=== PATIENT | female | born 1980 | race African-American/Black ===

== ENCOUNTER → 2016-09-08 | Outpatient (CLI) | payer OTHER ==
[~2016-09-08] MED LIST: FLEXERIL PO; NOHOMEMEDICATIONS; NORCO 5-325 TA1 EACH PO; PEPCID40 MG PO
== END ==
LOC: RAD 13:14
DX: N63 Unspecified lump in breast (principal); R92.2 Inconclusive mammogram

== ENCOUNTER 2016-12-20 18:17 | Emergency (ER) | payer OTHER ==
[~2016-12-20] VITALS: Ht 160 cm; Wt 49.9 kg
[2016-12-20 18:40] VITALS: BP 113/78
[2016-12-20] MEDS ORDERED: IBUPROFEN 800800 M1 PO (19:39)
[2016-12-20] MEDS ORDERED: FLEXERIL PO (19:39)
== END 2016-12-20 19:40 | disposition home or self-care (01) ==
LOC: ER 18:17
DX: S29.012A Strain of muscle and tendon of back wall of thorax, initial encounter (principal); F10.99 Alcohol use, unspecified with unspecified alcohol-induced disorder; F12.10 Cannabis abuse, uncomplicated; X50.0XXA Overexertion from strenuous movement or load, initial encounter; Y93.89 Activity, other specified; Y92.89 Other specified places as the place of occurrence of the external cause; Y99.8 Other external cause status

== ENCOUNTER 2016-12-22 20:42 | Emergency (ER) | payer OTHER ==
[~2016-12-22] VITALS: Ht 160 cm; Wt 49.9 kg
[~2016-12-22 20:42] MED LIST changes: +IBUPROFEN 800800 M1 PO
[2016-12-22 20:45] VITALS: BP 101/64
[2016-12-22] MEDS ORDERED: KEFLEX500 MG PO (21:42)
== END 2016-12-22 21:58 | disposition home or self-care (01) ==
LOC: ER 20:42
DX: S80.862A Insect bite (nonvenomous), left lower leg, initial encounter (principal); L03.116 Cellulitis of left lower limb; F10.99 Alcohol use, unspecified with unspecified alcohol-induced disorder; W57.XXXA Bitten or stung by nonvenomous insect and other nonvenomous arthropods, initial encounter; Y93.89 Activity, other specified; Y92.89 Other specified places as the place of occurrence of the external cause; Y99.8 Other external cause status

== ENCOUNTER 2018-11-20 15:15 | Emergency (ER) | payer BC ==
[~2018-11-20] VITALS: Ht 160 cm; Wt 54.4 kg
[~2018-11-20 15:15] MED LIST changes: +KEFLEX500 MG PO; +NAPROSYN500 M1 PO
[2018-11-20 15:46] LABS: URINE BILIRUBIN NEGATIVE (Negative); URINE BLOOD TRACE (Negative); URINE CLARITY SL CLOUDY; URINE COLOR YELLOW; URINE GLUCOSE-RANDOM* NEGATIVE (Negative); URINE KETONES NEGATIVE (Negative); URINE LEUKOCYTES NEGATIVE (Negative); URINE NITRITE NEGATIVE (Negative); URINE PROTEIN (DIPSTICK) NEGATIVE (Negative); URINE SPECIFIC GRAVITY 1.025 (1.005-1.035); URINE UROBILINOGEN 0.2 E.U./dl (0.2-1.0)
[2018-11-20 15:49] LABS: BASOPHILS 0.6 % (0.0-2.0); HEMATOCRIT 40.2 % (37.0-47.0); HEMOGLOBIN 13.3 gm/dL (12.0-15.0); LYMPHOCYTES 37.6 % (24.0-44.0); MCH 28.1 pg (26.0-34.0); MCHC 33.1 g/dL (28.0-37.0); MCV 85.1 fL (80.0-100.0); MONOCYTES 6.2 % (1.0-8.0); PLATELET COUNT 211 thou/uL (150-400); POLYS 54.6 % (36.0-66.0); RBC 4.72 mil/uL (4.20-5.00); RDW 13.8 % (10.5-14.5); WBC 5.4 thou/uL (4.0-11.0)
[2018-11-20 15:52] LABS: CALCIUM 9.2 mg/dL (8.5-10.1); CREATININE 0.8 mg/dL (0.6-1.0); POTASSIUM 3.9 mmol/L (3.5-5.1)
[2018-11-20 15:58] LABS: ALBUMIN 3.7 g/dL (3.4-5.0); TOTAL BILIRUBIN 0.3 mg/dL (<0.1-1.0); TOTAL PROTEIN 7.8 g/dL (6.4-8.2)
[2018-11-20 16:20] VITALS: BP 112/76
--- NOTE | 2018-11-21 12:52 | EKG ---
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1980 Requested By: Qasim Frey Order Number: [id number] MD: Florentin Coleman Measurements Intervals [place] Rate: 68 P: 37 LA: 157 QRS: 34 QRSD: 87 T: 33 QT: 382 QTc: 407 Interpretive Statements Sinus rhythm Normal tracing Compared to ECG 06/25/2016 17:55:27 No significant changes Electronically Signed On 11-21-2018 12:52:16 CDT by Florentin Coleman [email or web address] ��������������������������������������������� <ELECTRONICALLY SIGNED> ���������������������������������������� By: Florentin Coleman MD, [facility] ��������������������������������������������� 11/21/18 1252 1554 1554 Florentin Coleman MD, FACC /EPI
== END 2018-11-20 16:20 | disposition home or self-care (01) ==
LOC: ER 15:15
PROVIDERS: Emergency Medicine
DX: T67.6XXA Heat fatigue, transient, initial encounter (principal); G89.29 Other chronic pain; M54.9 Dorsalgia, unspecified; X58.XXXA Exposure to other specified factors, initial encounter; Y93.89 Activity, other specified; Y92.89 Other specified places as the place of occurrence of the external cause; Y99.8 Other external cause status

== ENCOUNTER 2019-06-29 16:57 | Emergency (ER) | payer BC, OTHER ==
[~2019-06-29] VITALS: Ht 160 cm; Wt 63.5 kg
[2019-06-29 18:00] LABS: URINE BILIRUBIN NEGATIVE (Negative); URINE BLOOD TRACE (Negative); URINE CLARITY CLEAR; URINE COLOR YELLOW; URINE GLUCOSE-RANDOM* NEGATIVE (Negative); URINE KETONES NEGATIVE (Negative); URINE LEUKOCYTES-REFLEX TRACE (Negative); URINE NITRITE-REFLEX NEGATIVE (Negative); URINE PROTEIN (DIPSTICK) NEGATIVE (Negative); URINE UROBILINOGEN 0.2 E.U./dl (0.2-1.0)
[2019-06-29 19:02] VITALS: BP 137/67
== END 2019-06-29 19:02 | disposition home or self-care (01) ==
LOC: ER 16:57
PROVIDERS: Emergency Medicine
DX: M54.5 Low back pain (principal); G89.29 Other chronic pain; V89.2XXA Person injured in unspecified motor-vehicle accident, traffic, initial encounter; Y93.89 Activity, other specified; Y92.89 Other specified places as the place of occurrence of the external cause; Y99.8 Other external cause status

== ENCOUNTER 2020-09-22 11:18 | Emergency (ER) | payer BC ==
[~2020-09-22] VITALS: Ht 160 cm; Wt 68.0 kg
[2020-09-22 11:51] LABS: URINE BILIRUBIN NEGATIVE (Negative); URINE BLOOD TRACE (Negative); URINE CLARITY CLEAR; URINE COLOR YELLOW; URINE GLUCOSE-RANDOM* NEGATIVE (Negative); URINE KETONES NEGATIVE (Negative); URINE LEUKOCYTES-REFLEX 1+ (Negative); URINE NITRITE-REFLEX NEGATIVE (Negative); URINE PROTEIN (DIPSTICK) NEGATIVE (Negative); URINE SPECIFIC GRAVITY 1.015 (1.005-1.035)
[2020-09-22 12:17] LABS: CASTS None Seen /LPF (None Seen); SQUAMOUS 4-10 Moderate /LPF (0-3)
[2020-09-22 12:18] LABS: BACTERIA-REFLEX None Seen /HPF (None Seen); CRYSTALS None Seen /LPF (None Seen); URINE RBC 1-2 Rare /HPF (NONE SEEN); URINE WBC-REFLEX 6-15 Few /HPF (0-5)
[2020-09-22 12:29] LABS: ABSOLUTE NEUTROPHILS 3.8 thou/uL (1.4-8.2); BASOPHILS 0.4 % (0.0-2.0); EOSINOPHILS 0.8 % (0.0-3.0); HEMOGLOBIN 13.1 gm/dL (12.0-15.0); LYMPHOCYTES 34.5 % (24.0-44.0); MCH 29.3 pg (26.0-34.0); MCHC 33.6 g/dL (28.0-37.0); MCV 87.3 fL (80.0-100.0); MONOCYTES 7.4 % (1.0-8.0); PLATELET COUNT 243 thou/uL (150-400); POLYS 56.9 % (36.0-66.0); RBC 4.47 mil/uL (4.20-5.00); RDW 13.6 % (10.5-14.5); WBC 6.7 thou/uL (4.0-11.0)
[2020-09-22 12:37] LABS: CALCIUM 8.5 mg/dL (8.5-10.1); CREATININE 0.9 mg/dL (0.6-1.0); POTASSIUM 3.9 mmol/L (3.5-5.1)
[2020-09-22 12:44] LABS: ALBUMIN 3.4 g/dL (3.4-5.0); TOTAL BILIRUBIN 0.4 mg/dL (0.2-1.0); TOTAL PROTEIN 7.6 g/dL (6.4-8.2)
[2020-09-22] MEDS ORDERED: CEPHALEXIN500 MG PO (13:17)
[2020-09-22] MEDS ORDERED: FLAGYL500 M1 PO (13:17)
[2020-09-22 13:57] VITALS: BP 116/74
== END 2020-09-22 14:06 | disposition home or self-care (01) ==
LOC: ER 11:18
PROVIDERS: Nurse Practitioner
DX: U07.1 COVID-19 (principal); R10.84 Generalized abdominal pain; R06.00 Dyspnea, unspecified; G89.29 Other chronic pain; M54.9 Dorsalgia, unspecified